=== PATIENT | female | born 1940 | race Caucasian/White ===

== ENCOUNTER 2019-06-01 11:10 | Observation (INO) | payer MEDICARE ==
[2019-06-01 13:18] LABS: #Basophils 0.1 thou/uL (0.0-0.2); #Eosinphils 0.2 thou/uL (0.0-0.7); #Lymphocytes 1.4 thou/uL (1.20-3.40); #Monocytes 0.5 thou/uL (0.11-0.59); #Neutrophils 4.1 thou/uL (1.40-6.50); %Basophils 0.9 % (0.0-1.0); %Lymphocytes 22.7 % (21.0-51.0); %Monocytes 7.9 % (0.0-10.0); %Neutrophils 65.5 % (42.0-75.0); Hemoglobin 13.8 g/dL (12.0-16.0); Mean Corpuscular HGB CONC 33.5 g/dL (32.0-36.0); Mean Corpuscular Volume 83.8 fL (78.0-98.0); Mean Platelet Volume 7.7 fL (7.4-10.4); Platelet Count 375 thou/uL (130-400); RBC Distribution Width 13.2 % (11.5-14.5); Red Blood Cell (RBC) Count 4.94 mill/uL (4.20-5.40); White Blood Cell (WBC) Count 6.3 thou/uL (4.8-10.8)
--- NOTE | 2019-06-01 13:30 | RAD ---
Exam: Chest one view HISTORY:Hypertension. Comparison: None FINDINGS: Cardiac silhouette: Normal Aorta: Unremarkable Pulmonary vessels: Normal Costophrenic angles: Clear LUNGS: No masses or consolidation. Pneumothorax: None Osseous abnormalities: Old posterior left rib fracture. Chronic changes in the distal left clavicle. IMPRESSION: No acute cardiopulmonary process.
[2019-06-01] MEDS ORDERED: Amlodipine 10 MG TAB PO SCH (13:45)
[2019-06-01 13:48] LABS: ALT (SGPT) 9 U/L (8-55); AST (SGOT) 16 U/L (5-34); Albumin 4.5 g/dL (3.4-4.8); Alkaline Phosphatase 92 U/L (40-110); Anion Gap 11 mmol/L (10-20); BUN (Urea Nitrogen) 23 mg/dL (9.8-20.1); Bilirubin, Total 0.4 mg/dL (0.2-1.2); Calc. Creatinine Clearance 0 mL/min (70-130); Calcium 9.8 mg/dL (7.8-10.44); Carbon Dioxide 31 mmol/L (23-31); Chloride 100 mmol/L (98-107); Estimated GFR-MDRD 38; Globulin 4.1 g/dL (2.4-3.5); Glucose 87 mg/dL (83-110); Potassium 4.2 mmol/L (3.5-5.1); Protein, Total 8.6 g/dL (6.0-8.3); Sodium 138 mmol/L (136-145)
--- NOTE | 2019-06-01 14:36 | PDOC.FPRHP ---
- History of Present Illness Chief Complaint: Elevated Blood Pressure History of Present Illness: Pt is an 78 yo female who presents from [facility] to the ED with elevated blood pressures. She was noted to have 250's/150's in the clinic. 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 In the past she took HTN medications but is not currently taking medication. Her family recently moved her here from [place], [place] to better take of her. She was asymptomatic during the exam with [facility]. She has increasing falls over the previous 1 month. She is currently at [facility]. 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 She denies lightheadedness, visual changes, chest pain, dyspnea at rest or exertion, N/V, diarrhea, constipation, dysuria, hematuria, increased frequency, LE edema, Mini Mental exam was 20 in office. ED Course: In the ED pt continued to have elevated blood pressures and was administered amlodipine 10 mg one time. She had drop in blood pressures to SBP 230's. Creatinine 1.33. EKG revealed LVH. Trop neg x 1. - Allergies/Adverse Reactions Allergies Allergy/AdvReac Type Severity Reaction Status Date / Time No Known Allergies Allergy Verified 06/01/19 17:53 - Home Medications Medication Instructions Recorded Confirmed Type No Known 06/01/19 06/01/19 History - History PMHx: HTN w/o treatment PSHx: Hysterectomy FHx: none Social: Lives at [facility]. Denies tobacco use, alcohol use. - Review of Systems General: denies: fever/chills, weight/appetite/sleep changes Eyes: denies: eye pain, vision changes ENT: denies: nasal congestion, rhinorrhea Respiratory: denies: cough, shortness of breath, exercise intolerance Cardiovascular: denies: chest pain, palpitation, edema Gastrointestinal: denies: nausea, vomiting, diarrhea, constipation, abdominal pain Genitourinary: denies: incontinence, dysuria, polyuria Skin: denies: rashes, lesions, jaundice Musculoskeletal: denies: pain, tenderness Neurological: denies: numbness, syncope, seizure, weakness Psychological: denies: anxiety, depression - Vital signs BP: [226/137] HR: [81] RR: [16] Tmax: [98.1] Pox: [98]% on [RA] Wt: [56.7 kg] - Physical Exam Constitutional: NAD, awake, alert and oriented, well developed HEENT: PERRLA, EOMI Neck: supple, FROM Heart: RRR, normal S1/S2 -Heart: systolic murmur noted at L Upper Sternal Border Lungs: CTAB, no respiratory distress, good air movement, no wheezing Abdomen: soft, non-tender, bowel sounds present Neurological: normal sensation -Neurological: mild decrease in strength noted over R cheek, no other deficits noted on CN II- XII Skin: no rash/lesions, capillary refill <2 seconds Heme/Lymphatic: no purpura, no petechia -Psychiatric: Poor long-term memory but still intact, short term memory intact, poor insight, tearful during exam FMR H&P: Results - Labs Result Diagrams: 06/02/19 04:08 06/02/19 04:08 Lab results: WBC 6.3 thou/uL (4.8-10.8) 06/01/19 13:03 Hgb 13.8 g/dL (12.0-16.0) 06/01/19 13:03 Hct 41.4 % (36.0-47.0) 06/01/19 13:03 MCV 83.8 fL (78.0-98.0) 06/01/19 13:03 Plt Count 375 thou/uL (130-400) 06/01/19 13:03 Neutrophils % 65.5 % (42.0-75.0) 06/01/19 13:03 Sodium 138 mmol/L (136-145) 06/01/19 13:03 Potassium 4.2 mmol/L (3.5-5.1) 06/01/19 13:03 Chloride 100 mmol/L (98-107) 06/01/19 13:03 Carbon Dioxide 31 mmol/L (23-31) 06/01/19 13:03 BUN 23 mg/dL (9.8-20.1) H 06/01/19 13:03 Creatinine 1.33 mg/dL (0.6-1.1) H 06/01/19 13:03 Glucose 87 mg/dL (83-110) 06/01/19 13:03 Calcium 9.8 mg/dL (7.8-10.44) 06/01/19 13:03 Total Bilirubin 0.4 mg/dL (0.2-1.2) 06/01/19 13:03 AST 16 U/L (5-34) 06/01/19 13:03 ALT 9 U/L (8-55) 06/01/19 13:03 Alkaline Phosphatase 92 U/L (40-110) 06/01/19 13:03 B-Natriuretic Peptide 49.1 pg/mL (0-100) 06/01/19 13:03 Serum Total Protein 8.6 g/dL (6.0-8.3) H 06/01/19 13:03 Albumin 4.5 g/dL (3.4-4.8) 06/01/19 13:03 - EKG Interpretation EKG: LVH noted on EKG - Radiology Interpretation Chest x-ray Status: image reviewed by me, report reviewed by me (No acute cardiopulmonary process.) FMR H&P: A/P - Problem List (1) Hypertensive urgency Current Visit: Yes Status: Acute Code(s): I16.0 - HYPERTENSIVE URGENCY (2) Systolic murmur Current Visit: Yes Status: Acute Code(s): R01.1 - CARDIAC MURMUR, UNSPECIFIED (3) Left ventricular hypertrophy by electrocardiogram Current Visit: Yes Status: Acute Code(s): I51.7 - CARDIOMEGALY - Plan Pt is an 78 yo female here for follow up of elevated blood pressures in the outpt setting, 260's/150's, not currently on medication w/o PCP. # HTN Urgency Pt is asymptomatic, mild asymmetry on R side lip. Previously diagnosed with HTN but has not been on medication. Unknown for how long. Unsure of last visit with PCP. EKG WNL, Trop neg x 1. - Started amlodipine 10 mg, Lisinopril 10 mg - pending release of records from PCP if family can find out who previous PCP was - pending CT Head, unsure if R sided facial weakness in new or old. Family did not appear concerned but neither did they note it as an issue. - Pending risk stratification: a1c, tsh, lipid panel - trend trop, neg x 1 # TONI vs Chronic Kidney Disease Creatinine 1.33, CrCl 30 - start fluids, monitor with addition of Lisinopril # Systolic Heart Murmur - Due to not having PMH or previous history will order echo to further assess murmur. Pt also have left ventricular hypertrophy. # Dementia Per family who just moved pt to area from [place], [place]. Noted she has congnitive decline over previous couple of years. MMSE in clinic was 20. Will need further treatment/follow up in the outpt setting. # R Should Pain Pt noted R sided shoulder pain in clinic but did not voice this during exam. Noted this was likely secondary to previous fall. - Tylenol 650 mg prn pain - If she continues to have pain tomorrow will further assess with x-ray. # Deconditioned # Altered Gait # Falls Pt has 2 falls in the previous month. She has altered gait for which she does not like to use her walker. Family believes if medical staff recommended walker she would use it. - PT/OT consulted Fluids: LR 100 mls/hr Diet: Heart Healthy VTE: SCD's pending CT Head w/o contrast Code Status: DNR-DNI Dispo: Pt will need to be admitted for control on elevated blood pressures before she can be discharged home, less than 48 hours expected. FMR H&P: Upper Level - Plan Date/Time: 06/01/19 1813 PCP: Jose J HPI: This is an 78 yo F being admitted for HTN urgency. She denies any medical issues. She was sent over from clinic for treatment of high blood pressure, she went to the clinic to establish care and did not have any specific complaints. The patient denies MAHER, CP, palpitations, SOB, or weakness. Denies fevers, chills , sweats, or N/V/D. She has not seen a doctor for at least 2 years prior to today and has not been taking any medications. Son and [id number] are at bedside and deny weakness or slurred speech but state over the last few weeks she has had some disequilibrium. PHYSICAL EXAMINATION: General: NAD, alert and oriented x3 HEENT: PERRLA, EOMI, normal sclera, oropharynx without erythema or exudate Neck: Supple. Full ROM. Heart/Cardiovascular System: RRR, Cap refill < 3 seconds, no rub, no murmur Lungs/Respiratory System: clear to auscultation bilaterally. No increased work of breathing. Room air. Abdomen/Gastro-Intestinal System: no abdominal tenderness, normal bowel sounds, no masses, no organomegaly Extremities: Warm extremities. No cyanosis or edema. Neuro: No gross deficits appreciated. CN 2-12 grossly intact, no upper/lower extremity drift, hardboard panel printer strength equal bilaterally, sensation intact bilaterally, very mild R side facial droop noted when smiling Psychiatry: Awake, Alert and cooperative with exam Skin: No lesions, rashes, or ulcers Musculoskeletal: Full ROM A/P: # Hypertensive Urgency - s/p amlodipine 10mg in ED - max BP 260/130 (map 173), most recent 226/137 (map 167) - will add lisinopril - goal to decrease BP to 160/100 in 1-2 days - trend UOP, Cr, and mental status to be sure patient tolerates lower BP - NIHSS: 1, CT head # De-conditioning - PT/OT/rehab screen - Has been living in independent living, will likely need assisted living pending eval # systolic murmur - echo Fluids: LR 100 ml/hr Code status: DNR PPx: Lovenox, SCD Dispo: 1-2 days Addendum - Attending - Attending Attestation Date/Time: 06/02/19 7810 I personally evaluated the patient and discussed the management with Dr. Pritchard I agree with the History, Examination, Assessment and Plan documented above with any addition or exceptions noted below- 78 yo female sent from clinic to the ED due to severely elevated BP. She was noted to have 250's/150's in the clinic. Denies any MAHER, chest pain, SOB, visual disturbances, focal weakness. 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 In the past she took HTN medications but is not currently taking medication. Her family recently moved her here from [place], [place] to better take of her. PMH/PSH/Meds/SH reviewed and agree with resident's documentation. Afebrile BP 211/105 P90 RR16. Exam repeated by me and agree with resident's findings. Labs: WBC= 6.3, H/H=13.8/41.4 , Dez=565, Oz=371, K=4.2, Zy=109, CO2=31, BUN/Cr=23/1.33, Gluc=87, AST/ALT=16/9 , Trop I=0.020, EKG- NSR, LVH. A/P: 1) Hypertensive urgency- started on amlodipine and lisinopril. Check CT brain and echo. 2) TONI vs CKD- baseline unknown; will gently hydrate and recheck labs in AM. 3) deconditioning- 2 falls recently; Will have PT evalaute patient. Consider SNF
--- NOTE | 2019-06-01 15:21 | RAD ---
3 VIEWS LEFT SHOULDER: Date: 06/01/19 COMPARISON: None. HISTORY: Left shoulder injury with pain. FINDINGS: 3 views of the left shoulder show a fracture of the distal aspect of the clavicle which is minimally displaced. No dislocation of the glenohumeral or acromioclavicular joints are seen. There may be a nondisplaced fracture of a left lateral rib. No pneumothorax is appreciated in the lef t thorax. IMPRESSION: 1. Distal clavicle fracture. 2. Possible minimally displaced left rib fracture. POS: [facility]
[2019-06-01] MEDS ORDERED: Lisinopril 10 MG TAB PO SCH (16:30)
[2019-06-01 16:55] LABS: Troponin I 0.028 ng/mL (< 0.028)
--- NOTE | 2019-06-01 17:36 | CT ---
CT Brain WO Con: 06/01/2019 5:03 PM CLINICAL HISTORY: Hypertension. COMPARISON: None. FINDINGS: Hemorrhage: None. Ventricular system: Enlarged. Cerebral parenchyma: Bilateral cerebral white matter hypodensities. Lacunar infarctions are seen within the cerebral hemispheres, bilaterally. Midline shift: None. Mass: No mass effect. Calvarium: Normal. Visualized Paranasal sinuses: Clear. IMPRESSION: Ventriculomegaly with periventricular white matter hypoattenuation. This could be on the basis of gli osis and/or transependymal CSF migration. Correlate correlate clinically to exclude evidence of normal pressure hydrocephalus.
[2019-06-01 18:27] VITALS: BMI 23.6
[2019-06-01] MEDS ORDERED: Labetalol HCl 100 MG/20 ML VIAL SLOW IVP PRN ×2 (18:27→18:29)
[2019-06-01] MEDS: Lactated Ringer's 1,000 ML IV SCH (18:59)
[2019-06-01 19:03] LABS: Hemoglobin A1c 5.5 % (4.0-6.0)
[2019-06-01 19:23] LABS: Troponin I 0.022 ng/mL (< 0.028)
[2019-06-02 04:23] LABS: #Eosinphils 0.2 thou/uL (0.0-0.7); #Lymphocytes 1.7 thou/uL (1.20-3.40); #Monocytes 0.6 thou/uL (0.11-0.59); #Neutrophils 6.1 thou/uL (1.40-6.50); %Basophils 0.4 % (0.0-1.0); %Eosinophils 1.8 % (0.0-10.0); %Monocytes 6.7 % (0.0-10.0); %Neutrophils 71.1 % (42.0-75.0); Hemoglobin 13.4 g/dL (12.0-16.0); Mean Corpuscular HGB CONC 34.4 g/dL (32.0-36.0); Mean Corpuscular Hemoglobin 28.8 pg (27.0-31.0); Mean Corpuscular Volume 83.8 fL (78.0-98.0); Mean Platelet Volume 7.6 fL (7.4-10.4); Platelet Count 366 thou/uL (130-400); RBC Distribution Width 13.2 % (11.5-14.5); Red Blood Cell (RBC) Count 4.67 mill/uL (4.20-5.40); White Blood Cell (WBC) Count 8.6 thou/uL (4.8-10.8)
[2019-06-02 04:42] LABS: Anion Gap 15 mmol/L (10-20); BUN (Urea Nitrogen) 21 mg/dL (9.8-20.1); Calc. Creatinine Clearance 30 mL/min (70-130); Calcium 9.3 mg/dL (7.8-10.44); Carbon Dioxide 23 mmol/L (23-31); Cardiac Risk 3.1 (Less than 4.5); Chloride 103 mmol/L (98-107); Cholesterol 212 mg/dl (< 200 Desired); Estimated GFR-MDRD 40; Glucose 101 mg/dL (83-110); HDL Cholesterol 68 mg/dL (>60 Neg Risk); LDL Cholesterol, Calculated 130 mg/dL; Potassium 4.3 mmol/L (3.5-5.1); Sodium 137 mmol/L (136-145); Triglycerides 70 mg/dL (Less than 150)
--- NOTE | 2019-06-02 06:03 | PDOC.FM ---
- Subjective Subjective: Pt is doing well today. Denies any changes from yesterday. Nurse states overnight she had 2 episodes of incontinence requiring diaper. Pt states this is not normal at home. - Objective Vital Signs & Weight: Vital Signs (12 hours) Temp Pulse Resp BP BP Pulse Ox 06/02/19 04:09 98.2 F 98 19 179/101 H 94 L 06/01/19 19:30 98 F 98 17 188/90 H 96 06/01/19 18:55 144/93 H 06/01/19 18:25 98.3 F 110 H 16 208/112 H 06/01/19 18:13 90 Weight Weight 54.567 kg I&O: 05/31/19 06/01/19 06/02/19 06:59 06:59 06:59 Intake Total 650 Output Total 750 Balance -100 Result Diagrams: 06/02/19 04:08 06/02/19 04:08 Phys Exam - Physical Examination Constitutional: NAD HEENT: PERRLA, moist MMs Neck: no JVD, full ROM Respiratory: no wheezing, no rhonchi, clear to auscultation bilateral Cardiovascular: RRR, no significant murmur Gastrointestinal: soft, non-tender, positive bowel sounds Musculoskeletal: no edema, pulses present Deviation from normal: AAO x 1 to person. She has decreased short term memory. Dx/Plan (1) Hypertensive urgency Code(s): I16.0 - HYPERTENSIVE URGENCY Status: Acute (2) Systolic murmur Code(s): R01.1 - CARDIAC MURMUR, UNSPECIFIED Status: Acute (3) Left ventricular hypertrophy by electrocardiogram Code(s): I51.7 - CARDIOMEGALY Status: Acute (4) Hypertension Code(s): I10 - ESSENTIAL (PRIMARY) HYPERTENSION Status: Acute (5) Fracture of left clavicle Code(s): S42.002A - FRACTURE OF UNSP PART OF LEFT CLAVICLE, INIT FOR CLOS FX Status: Acute (6) Cerebral ventriculomegaly Code(s): G93.89 - OTHER SPECIFIED DISORDERS OF BRAIN Status: Acute - Plan Plan: Pt is an 78 yo female here for follow up of elevated blood pressures in the outpt setting, 260's/150's, not currently on medication w/o PCP. # HTN Urgency Pt is asymptomatic, mild asymmetry on R side lip. Previously diagnosed with HTN but has not been on medication. Unknown for how long. Unsure of last visit with PCP. EKG WNL, Trop neg x 1. - Started amlodipine 10 mg, increase Lisinopril to 20 mg daily - pending release of records from PCP if family can find out who previous PCP was - CT scan revealed ventriculomegaly and should correlate with NPH; no signs of acute infarct. - Pending risk stratification: a1c 5.5; TSH 3.1; Tri 70, LDL 130, Chol 212, HDL 68 - trend trop, neg x 3 # TONI vs Chronic Kidney Disease Creatinine 1.27, minimal improvement with addition of mike-i and fluids. - start fluids, monitor with increase of Lisinopril # Systolic Heart Murmur - Due to not having PMH or previous history will order echo to further assess murmur. Pt also has left ventricular hypertrophy. # Dementia Per family who just moved pt to area from [place], [place]. Noted she has congnitive decline over previous couple of years. MMSE in clinic was 20. Will need further treatment/follow up in the outpt setting. # L Shoulder Pain # Distal L Clavicle Fracture Pt noted R sided shoulder pain in clinic but did not voice this during exam. Noted this was likely secondary to previous fall. - Tylenol 650 mg prn pain - X-ray from the ED revealed distal L clavicle fracture. Minimal displacement. No change in glenohumeral joint, AC joint. - Provide sling and follow up oupt. # Deconditioned # Altered Gait # Falls Pt has 2 falls in the previous month. She has altered gait for which she does not like to use her walker. Family believes if medical staff recommended walker she would use it. - PT/OT consulted; will consult case management. Fluids: LR 100 mls/hr Diet: Heart Healthy VTE: SCD's pending CT Head w/o contrast Code Status: DNR-DNI Dispo: Pt will need to be admitted for control on elevated blood pressures before she can be discharged home, less than 48 hours expected.
[2019-06-02] MEDS ORDERED: Lisinopril 10 MG TAB PO SCH (09:00)
[2019-06-02] MEDS ORDERED: Lisinopril 20 MG TAB PO SCH (09:00)
[2019-06-02] MEDS: Lactated Ringer's 1,000 ML IV SCH ×2 (09:21→19:48)
[2019-06-02] MEDS: Amlodipine 10 MG TAB PO SCH (09:21)
[2019-06-02] MEDS: Acetaminophen 325 MG TAB PO PRN (09:21)
--- NOTE | 2019-06-02 12:04 | PRG ---
DATE OF SERVICE: 06/02/2019 Ms. Fall was admitted yesterday with severe asymptomatic hypertension. She was treated appropriately with oral medications and now has a [address] shows enlargement of her ventricular system consistent with possible normal-pressure hydrocephalus. She does in fact have urinary incontinence and an ataxic gait. We will ask Dr. Jessica to consult on the case. We will continue slowly bringing her blood pressure down to near normal. Job ID: [id number]
[2019-06-02] MEDS ORDERED: Prevnar 13-Val Conj/PF 0.5 ML SYRINGE IM ONE (18:15)
[2019-06-02] MEDS ORDERED: FLU VACC TS2019-20(65YR UP)/PF 180 MCG/0.5 ML SYRINGE IM ONE (18:15)
--- NOTE | 2019-06-02 21:26 | CON ---
DATE OF CONSULTATION: 06/02/2019 CONSULT PHYSICIANS: Hospital Service. 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 PLAN: We will monitor as an outpatient. HISTORY AND PHYSICAL: Ms. Fall is an 78-year-old woman who recently moved here from [place]. She moved into [place] to be closer to family. She was living independently prior to this. She did not drive a car. She is now living in the independent living section. She gets around the apartment without much difficulty. About a month ago, she fell and fractured her left clavicle. She came in with severe hypertension. Her only symptom was she had a headache. Her blood pressure was around 240/120. She had a CT scan of the brain done, was read as questionable normal-pressure hydrocephalus. I was called to give a neurologic opinion. She denies any significant gait difficulties. She is not incontinent of urine. She is cognitively intact. Family has not seen any sign of significant cognitive decline. PAST MEDICAL HISTORY: Hypertension. ALLERGIES: NONE REPORTED. SOCIAL HISTORY: No tobacco or alcohol use. FAMILY HISTORY: Noncontributory. REVIEW OF SYSTEMS: Ten-system review of systems is otherwise negative. PHYSICAL EXAMINATION: GENERAL: She is a well-nourished elderly lady, sitting up in bed, in no distress. VITAL SIGNS: Have been improving, although she has had persistent hypertension. HEENT: Pupils are equal and reactive. Conjunctivae are clear. Oropharynx is clear. NECK: Supple. EXTREMITIES: She has a sling on the left arm. No cyanosis or edema. NEUROLOGIC: She is alert and appropriate. Her speech is fluent and clear. Cranial nerves are intact. Motor exam shows equal strength. Sensation is intact to light touch. She has no abnormal movements. Physical Therapy took her for a walk with a roller walker and she did reasonably well. LABORATORY DATA: EKG shows normal sinus rhythm. SUMMARY: I have reviewed the CT scan of the brain. I do not think it is definitively consistent with normal-pressure hydrocephalus. I suspect it is primarily related to age-related atrophy and microvascular disease from severe hypertension. The risk of shunting in a patient of her age is extremely high. I am going to follow her as an outpatient. Job ID: [id number]
[2019-06-03] MEDS: Lactated Ringer's 1,000 ML IV SCH (05:40)
--- NOTE | 2019-06-03 05:51 | PDOC.FM ---
- Subjective Subjective: Pt is doing well today. She woke up with a MAHER and is waiting to see if tylenol alleviates. She has mild pain with left shoulder. - Objective Vital Signs & Weight: Vital Signs (12 hours) Temp Pulse Resp BP Pulse Ox 06/03/19 04:23 98.4 F 97 15 177/96 H 99 06/02/19 23:58 98.4 F 93 15 186/66 H 97 06/02/19 19:33 185/90 H 06/02/19 19:18 98.4 F 86 14 195/91 H 97 Weight Weight 55.701 kg I&O: 06/01/19 06/02/19 06/03/19 06:59 06:59 06:59 Intake Total 2150 1600 Output Total 1550 850 Balance 600 750 Result Diagrams: 06/03/19 05:28 06/03/19 05:28 Phys Exam - Physical Examination Constitutional: NAD HEENT: PERRLA, moist MMs Respiratory: no wheezing, no rales, no rhonchi, clear to auscultation bilateral Cardiovascular: RRR, no significant murmur Gastrointestinal: soft, non-tender, positive bowel sounds Musculoskeletal: no edema, pulses present Left shoulder in sling Dx/Plan (1) Hypertensive urgency Code(s): I16.0 - HYPERTENSIVE URGENCY Status: Acute (2) Systolic murmur Code(s): R01.1 - CARDIAC MURMUR, UNSPECIFIED Status: Acute (3) Left ventricular hypertrophy by electrocardiogram Code(s): I51.7 - CARDIOMEGALY Status: Acute (4) Hypertension Code(s): I10 - ESSENTIAL (PRIMARY) HYPERTENSION Status: Acute (5) Fracture of left clavicle Code(s): S42.002A - FRACTURE OF UNSP PART OF LEFT CLAVICLE, INIT FOR CLOS FX Status: Acute (6) Cerebral ventriculomegaly Code(s): G93.89 - OTHER SPECIFIED DISORDERS OF BRAIN Status: Acute - Plan Plan: Pt is an 78 yo female here for follow up of elevated blood pressures in the outpt setting, 260's/150's, not currently on medication w/o PCP, will start management; pt also had falls and will likely need PT/OT in the outpt setting. # HTN Urgency Pt is asymptomatic, mild asymmetry on R side lip. Previously diagnosed with HTN but has not been on medication. Unknown for how long. Unsure of last visit with PCP. EKG WNL, Trop neg x 1. - Started amlodipine 10 mg, increase Lisinopril to 40 mg daily - CT scan revealed no signs of acute infarct. - Pending risk stratification: a1c 5.5; TSH 3.1; Tri 70, LDL 130, Chol 212, HDL 68 - trend trop, neg x 3 # TONI vs Chronic Kidney Disease Creatinine 1.27, minimal improvement with addition of mike-i and fluids. - start fluids, monitor with increase of Lisinopril # Systolic Heart Murmur - Due to not having PMH or previous history will order echo to further assess murmur. Pt also has left ventricular hypertrophy. # Dementia Per family who just moved pt to area from [place], [place]. Noted she has congnitive decline over previous couple of years. MMSE in clinic was 20. Will need further treatment/follow up in the outpt setting. - Consulted neurology for NPH; do not believe it is NPH but more likely chronic degenerative change from hypertension. Dr. Jessica will follow outpt; appreciate recommendations. # L Shoulder Pain # Distal L Clavicle Fracture Pt noted R sided shoulder pain in clinic but did not voice this during exam. Noted this was likely secondary to previous fall. - Tylenol 650 mg prn pain - X-ray from the ED revealed distal L clavicle fracture. Minimal displacement. No change in glenohumeral joint, AC joint. - Provide sling and follow up ortho outpt. # Deconditioned # Altered Gait # Falls Pt has 2 falls in the previous month. She has altered gait for which she does not like to use her walker. Family believes if medical staff recommended walker she would use it. - PT/OT consulted; will consult case management and [facility] to assess need for home PT/OT or assisted living. - Neuro consult as above Fluids: LR 100 mls/hr Diet: Heart Healthy VTE: SCD's pending CT Head w/o contrast Code Status: DNR-DNI Dispo: D/C today with close outpt follow up for fracture and hypertension pending discussion for rehab.
[2019-06-03] MEDS ORDERED: Lisinopril 20 MG TAB PO SCH ×3 (05:58→09:00)
[2019-06-03 06:30] LABS: #Eosinphils 0.2 thou/uL (0.0-0.7); #Lymphocytes 1.3 thou/uL (1.20-3.40); #Monocytes 0.4 thou/uL (0.11-0.59); #Neutrophils 3.2 thou/uL (1.40-6.50); %Basophils 0.9 % (0.0-1.0); %Eosinophils 4.2 % (0.0-10.0); %Lymphocytes 24.6 % (21.0-51.0); %Monocytes 7.3 % (0.0-10.0); %Neutrophils 62.9 % (42.0-75.0); Hemoglobin 11.9 g/dL (12.0-16.0); Mean Corpuscular HGB CONC 33.7 g/dL (32.0-36.0); Mean Corpuscular Hemoglobin 28.3 pg (27.0-31.0); Platelet Count 303 thou/uL (130-400); RBC Distribution Width 13.2 % (11.5-14.5); White Blood Cell (WBC) Count 5.1 thou/uL (4.8-10.8)
[2019-06-03 06:45] LABS: Anion Gap 14 mmol/L (10-20); BUN (Urea Nitrogen) 18 mg/dL (9.8-20.1); Calc. Creatinine Clearance 34 mL/min (70-130); Calcium 8.8 mg/dL (7.8-10.44); Carbon Dioxide 24 mmol/L (23-31); Chloride 104 mmol/L (98-107); Estimated GFR-MDRD 45; Glucose 84 mg/dL (83-110); Potassium 3.7 mmol/L (3.5-5.1); Sodium 138 mmol/L (136-145)
[2019-06-03] MEDS: Amlodipine 10 MG TAB PO SCH (08:43)
[2019-06-03 12:28] VITALS: BP 187/87; TEMP 97.8
--- NOTE | 2019-06-03 12:43 | PRG ---
DATE OF SERVICE: 06/03/2019 Ms. Fall is sitting quietly in bed, in no distress. She was seen by Dr. Jessica, who does not feel she has normal-pressure hydrocephalus, but does want to follow up with her as an outpatient. Her blood pressure is still slightly elevated, but will be continued to be managed as an outpatient with close followup in the clinic. Job ID: [id number]
[2019-06-03] MEDS: Acetaminophen 325 MG TAB PO PRN (13:18)
[2019-06-04] MEDS ORDERED: Lisinopril 20 MG TAB PO SCH (09:00)
--- NOTE | 2019-06-04 14:38 | DIS ---
DATE OF ADMISSION: 06/01/2019 DATE OF DISCHARGE: 06/03/2019 DISCHARGE ATTENDING: Dr. Charli Anderson. RESIDENT: Miko Pritchard DO. ADMITTING ATTENDING: Dr. Deysi Canales. CONSULTS: Dr. Getachew Jessica, Neurology. PROCEDURES: 1. Chest x-ray on 06/01/2019 revealed no acute cardiopulmonary processes. Did reveal an old posterior left rib fracture. Chronic changes in the distal left clavicle. 2. Shoulder x-ray revealed distal clavicle fracture. Possible minimally displaced leftward rib fracture. 3. Brain CT on 05/22/2019 revealed ventriculomegaly with periventricular white matter hypoattenuation. This could be on the basis of gliosis and for transependymal CSF migration. Correlate clinically to exclude evidence of normal-pressure hydrocephalus. 4. Echocardiogram revealed an ejection fraction of 50% to 55%. Normal size left atrium. Left ventricular size normal. Aortic valve leaflets are somewhat thickened. Aortic stenosis. Mild tricuspid regurgitation. Impaired relaxation compatible with diastolic dysfunction. Technically inadequate exam though reported, no repeat exam. PRIMARY DIAGNOSES: 1. Hypertensive urgency. 2. Chronic kidney disease. 3. Dementia. 4. Distal left clavicle fracture, minimally displaced. 5. Deconditioning. 6. Altered gait. 7. History of falls. SECONDARY DIAGNOSIS: None. DISCHARGE MEDICATIONS: 1. Amlodipine 10 mg p.o. daily. 2. Lisinopril 40 mg p.o. daily. HISTORY OF PRESENT ILLNESS/HOSPITAL COURSE: Nicolasa Fall is an 78-year-old female who presented to the Emergency Department with hypertensive urgency from [facility]. She was having blood pressures in the 260s over 150s. She was asymptomatic though. Her baseline seems to be AAO x1. She recently moved from [place], [place], to be closer to her family. Family did not really know what her baseline was, but they knew that she was demented and was having recurrent falls. For the hypertensive urgency, due to her being asymptomatic, we slowly lowered the blood pressure. Started with 10 mg amlodipine an added on lisinopril 10 mg. On her 2nd day, we increased lisinopril to 20 mg daily with a little bit tighter control to higher than we wanted. On the 3rd day, we increased her lisinopril to 40 mg daily, now with control what we want, but advised her to have good followup in the outpatient setting and family and her were agreeable to this. Her CT scan revealed no signs of acute infarct. A1c was 5.5, TSH was 3.1, triglycerides 70, LDL 130, cholesterol 212, HDL 68. Troponins were negative x3. Suggesting she has chronic kidney disease, probably with her baseline of creatinine around 1.27. Due to her dementia and her gait and episodes of incontinence while she was in the hospital, we consulted Neurology, Dr. Jessica, to see her. He advised seeing her in the outpatient setting to further stratify for normal-pressure hydrocephalus. The patient did endorse many falls over the last month. Shoulder x-ray did reveal distal left clavicle fracture. We have advised her to follow up with orthopedist in the outpatient setting. We did give her referral. Her left arm is in a sling as well. Advised ibuprofen and Tylenol alternating fashion to help with pain if she is having any. Due to her altered gait, we contacted Case Management to help her set up PT/OT. DISPOSITION: Stable. DISCHARGE INSTRUCTIONS: 1. Location: [facility]. 2. Diet: No restrictions. 3. Activity: Ad gerda. Work with PT/OT. 4. Followup: Follow up with Dr. Aleida Hutchinson within 7 days. Follow up with Dr. Philip Morrell within 7 days. Job ID: [id number] MTDD
== END 2019-06-03 14:04 | disposition home or self-care (01) ==
LOC: ERS 11:10 → 2SW 16:31
PROVIDERS: ADMIT Family Medicine; ATTEND Family Medicine
DX: I16.0 Hypertensive urgency (principal); I12.9 Hypertensive chronic kidney disease with stage 1 through stage 4 chronic kidney disease, or unspecified chronic kidney disease; N18.9 Chronic kidney disease, unspecified; R01.1 Cardiac murmur, unspecified; I51.7 Cardiomegaly; R53.81 Other malaise; F03.90 Unspecified dementia, unspecified severity, without behavioral disturbance, psychotic disturbance, mood disturbance, and anxiety; S42.032A Displaced fracture of lateral end of left clavicle, initial encounter for closed fracture; Z66 Do not resuscitate; Z91.14 Patient's other noncompliance with medication regimen; Z91.81 History of falling
CPT/HCPCS: 70450; 71045; 73030; 80048 ×2; 80061; 83036; 83880; 84484 ×2; 85025 ×2; 90662; 90670; 93005; 93306; 96360; 96361 ×3; 97116; 97139 ×2; 97535; 99285; G0008; G0009 ×2; G0378 ×3; 36415; 80053; 84443; 90471

== ENCOUNTER 2020-06-07 13:05 | Outpatient (CLI) | payer MEDICARE, MEDICAID ==
--- NOTE | 2020-06-07 13:36 | ULT ---
Renal ultrasound: 06/07/2020 COMPARISON:None available HISTORY:Chronic kidney disease TECHNIQUE: Multiplanar grayscale sonographic imaging of thekidneys and urinary bladder obtained FINDINGS:The right kidney measures approximately 8.2 x 3.6 cm with a cortical thickness of approximat valeria 1 cm. There is a 2.9 x 2.3 cm round isoechoic lesion which appears to emanate from the ventral aspect of the lower pole right kidney, suspicious for a solid renal mass. No right-sided hydronephros is. Probable small cyst within the right kidney measuring in the 12 mm range. Left kidney contains multiple cysts measuring up to 2.6 cm. Left kidney measures 9.6 x 3.9 cm and dem onstrates a cortical thickness of approximately 8 mm. No left-sided hydronephrosis. Urinary bladder is not well assessed and appears empty. IMPRESSION:Findings suspicious for an exophytic solid lesion emanating from the ventral aspect of the lower pole right kidney. CT of abdomen with and without IV contrast using renal mass protocol advised CODE T
== END 2020-06-07 13:06 | disposition home or self-care (01) ==
LOC: BICULT 13:05
PROVIDERS: ATTEND Internal Medicine Nephrology
DX: I12.9 Hypertensive chronic kidney disease with stage 1 through stage 4 chronic kidney disease, or unspecified chronic kidney disease (principal); N18.30 Chronic kidney disease, stage 3 unspecified; N28.89 Other specified disorders of kidney and ureter
CPT/HCPCS: 36415; 76770; 80048; 82040; 82306; 82570; 83735; 83970; 84100; 84156; 85025

== ENCOUNTER 2022-10-04 13:58 | Outpatient (CLI) | payer MEDICARE, MEDICAID | END 2022-10-04 13:59 | disposition home or self-care (01) | LOC: BICCT 13:58 | PROVIDERS: ATTEND Psychiatry & Neurology Neurology | DX: G31.84 Mild cognitive impairment of uncertain or unknown etiology (principal); I67.2 Cerebral atherosclerosis; I67.89 Other cerebrovascular disease | CPT/HCPCS: 70450 ==

== ENCOUNTER 2023-08-20 15:01 | Inpatient (IN) | payer MEDICARE, MEDICAID ==
[2023-08-20] MEDS ORDERED: Acetaminophen 500 MG TAB ONE (15:36)
[2023-08-20] MEDS ORDERED: Ipratropium/Albuterol 3 ML NEB ONE ×2 (15:38→16:29)
[2023-08-20 15:54] LABS: #Monocytes 0.9 thou/uL (0.11-0.59); #Neutrophils 7.3 thou/uL (1.40-6.50); %Basophils 0.4 % (0.0-1.0); %Monocytes 10.3 % (0.0-10.0); %Neutrophils 86.8 % (42.0-75.0); Hemoglobin 12.3 g/dL (12.0-16.0); Mean Corpuscular HGB CONC 32.4 g/dL (32.0-36.0); Mean Corpuscular Hemoglobin 26.7 pg (27.0-31.0); Mean Corpuscular Volume 82.4 fl (78.0-98.0); Mean Platelet Volume 10.4 fL (7.4-10.4); Platelet Count 284 10x3/uL (130-400); RBC Distribution Width 14.6 % (11.5-14.5); Red Blood Cell (RBC) Count 4.61 mill/uL (4.20-5.40); White Blood Cell (WBC) Count 8.4 10x3/uL (4.8-10.8)
[2023-08-20 16:19] LABS: ALT (SGPT) 7 U/L (8-55); AST (SGOT) 18 U/L (5-34); Albumin 4.4 g/dL (3.4-4.8); Alkaline Phosphatase 71 U/L (40-110); Anion Gap 14 mmol/L (10-20); BUN (Urea Nitrogen) 27 mg/dL (9.8-20.1); Bilirubin, Total 0.4 mg/dL (0.2-1.2); Calc. Creatinine Clearance 0 mL/min (70-130); Calcium 9.5 mg/dL (7.8-10.44); Carbon Dioxide 25 mmol/L (23-31); Chloride 104 mmol/L (98-107); Estimated GFR 26; Globulin 3.9 g/dL (2.4-3.5); Glucose 130 mg/dL (83-110); Protein, Total 8.3 g/dL (5.8-8.1); Sodium 139 mmol/L (136-145)
[2023-08-20] MEDS ORDERED: cefTRIAXone (ROCEPHIN) 2 GM VIAL ONE (16:19)
[2023-08-20] MEDS ORDERED: Vancomycin 1 GM/200 ML (FROZEN) BAG ONE (16:19)
[2023-08-20] MEDS ORDERED: Sodium Chloride 0.9% 100 ML ONE (16:20)
[2023-08-20 16:41] LABS: SARS-CoV-2 NAA Rapid Test Not Detected (NotDetected)
[2023-08-20] MEDS ORDERED: Oseltamivir 75 MG CAP PO SCH (17:15)
[2023-08-20] MEDS ORDERED: Lactated Ringer's 1,000 ML IV SCH (17:45)
[2023-08-20] MEDS ORDERED: Ondansetron PF 4 MG/2 ML Vial IVP PRN (17:55)
[2023-08-20] MEDS ORDERED: Ondansetron ODT 4 MG TAB PO PRN (17:55)
[2023-08-20] MEDS ORDERED: Sodium Chloride 0.9% 1,000 ML IV SCH (18:00)
[2023-08-20] MEDS ORDERED: Ipratropium/Albuterol 3 ML NEB NEB PRN (18:48)
[2023-08-20 21:18] VITALS: BMI 22.6
[2023-08-20] MEDS: guaiFENesin ER 600 MG TAB PO SCH (22:36)
[2023-08-21] MEDS: Acetaminophen 325 MG TAB PO PRN ×2 (03:51→20:19)
[2023-08-21 06:10] LABS: #Monocytes 0.7 thou/uL (0.11-0.59); #Neutrophils 3.5 thou/uL (1.40-6.50); %Basophils 0.7 % (0.0-1.0); %Eosinophils 0.2 % (0.0-10.0); %Lymphocytes 6.8 % (21.0-51.0); %Monocytes 14.3 % (0.0-10.0); %Neutrophils 77.6 % (42.0-75.0); Hematocrit 33.4 % (36.0-47.0); Hemoglobin 10.5 g/dL (12.0-16.0); Mean Corpuscular HGB CONC 31.4 g/dL (32.0-36.0); Mean Corpuscular Hemoglobin 26.8 pg (27.0-31.0); Mean Platelet Volume 10.3 fL (7.4-10.4); Platelet Count 202 10x3/uL (130-400); RBC Distribution Width 14.8 % (11.5-14.5); Red Blood Cell (RBC) Count 3.92 mill/uL (4.20-5.40); White Blood Cell (WBC) Count 4.6 10x3/uL (4.8-10.8)
[2023-08-21 06:29] LABS: Anion Gap 14 mmol/L (10-20); BUN (Urea Nitrogen) 21 mg/dL (9.8-20.1); Calc. Creatinine Clearance 24 mL/min (70-130); Calcium 8.3 mg/dL (7.8-10.44); Carbon Dioxide 20 mmol/L (23-31); Chloride 109 mmol/L (98-107); Estimated GFR 36; Glucose 103 mg/dL (83-110); Potassium 3.5 mmol/L (3.5-5.1); Sodium 139 mmol/L (136-145)
[2023-08-21 06:43] LABS: Mean Corpuscular Volume 85.2 fl (78.0-98.0)
[2023-08-21] MEDS: guaiFENesin ER 600 MG TAB PO SCH ×2 (08:58→20:19)
[2023-08-21] MEDS ORDERED: Oseltamivir 75 MG CAP PO SCH (09:00)
[2023-08-21] MEDS ORDERED: cefTRIAXone\\ROCEPHIN 1 GM in Sodium Chloride 0.9% 100 ML IVPB SCH (16:00)
[2023-08-22 05:54] LABS: #Eosinphils 0.1 thou/uL (0.0-0.7); #Monocytes 0.5 thou/uL (0.11-0.59); #Neutrophils 1.8 thou/uL (1.40-6.50); %Basophils 0.7 % (0.0-1.0); %Lymphocytes 19.9 % (21.0-51.0); %Monocytes 16.6 % (0.0-10.0); %Neutrophils 59.5 % (42.0-75.0); Hemoglobin 10.9 g/dL (12.0-16.0); Mean Corpuscular HGB CONC 32.1 g/dL (32.0-36.0); Mean Corpuscular Volume 84.4 fl (78.0-98.0); Mean Platelet Volume 10.5 fL (7.4-10.4); Platelet Count 197 10x3/uL (130-400); RBC Distribution Width 14.6 % (11.5-14.5); Red Blood Cell (RBC) Count 4.03 mill/uL (4.20-5.40)
[2023-08-22 06:23] LABS: ALT (SGPT) 9 U/L (8-55); AST (SGOT) 25 U/L (5-34); Albumin 3.4 g/dL (3.4-4.8); Alkaline Phosphatase 54 U/L (40-110); Anion Gap 10 mmol/L (10-20); BUN (Urea Nitrogen) 15 mg/dL (9.8-20.1); Bilirubin, Total 0.2 mg/dL (0.2-1.2); Calc. Creatinine Clearance 27 mL/min (70-130); Calcium 8.2 mg/dL (7.8-10.44); Carbon Dioxide 25 mmol/L (23-31); Chloride 107 mmol/L (98-107); Estimated GFR 41; Globulin 3.3 g/dL (2.4-3.5); Glucose 83 mg/dL (83-110); Potassium 3.2 mmol/L (3.5-5.1); Protein, Total 6.7 g/dL (5.8-8.1); Sodium 139 mmol/L (136-145)
[2023-08-22] MEDS: guaiFENesin ER 600 MG TAB PO SCH (08:31)
[2023-08-22] MEDS ORDERED: Oseltamivir 6 MG/ML ORAL SUSP PO SCH (09:00)
[2023-08-22] MEDS: Acetaminophen 325 MG TAB PO PRN (11:23)
[2023-08-22 12:52] VITALS: BP 164/73; TEMP 98.7
== END 2023-08-22 15:45 | DRG 193 ==
LOC: ERS 15:01 → ERHOLD 17:45 → SURG A 20:27 → OBSVTOIN 08-21 11:36
PROVIDERS: ADMIT Family Medicine; ATTEND Student in an Organized Health Care Education/Training Program
DX: J10.00 Influenza due to other identified influenza virus with unspecified type of pneumonia (principal); J96.01 Acute respiratory failure with hypoxia; I10 Essential (primary) hypertension; F03.90 Unspecified dementia, unspecified severity, without behavioral disturbance, psychotic disturbance, mood disturbance, and anxiety; Z79.899 Other long term (current) drug therapy; Z90.710 Acquired absence of both cervix and uterus; Z11.52 Encounter for screening for COVID-19
CPT/HCPCS: 0241U; 36415; 71045; 80048; 80053; 83605; 85025; 87040; 93005; 94640; 94760; J0696; J3370-JW; J3490; J7050; J7620